=== PATIENT | male | born 1995 | race Caucasian/White ===

== ENCOUNTER 2023-05-10 15:02 | Emergency (ER) | payer MEDICAID ==
[~2023-05-10] VITALS: Ht 180.3 cm; Wt 80.7 kg
[2023-05-10 15:21] VITALS: BP 115/68; TEMP 98.5
[2023-05-10] MEDS ORDERED: predniSONE 50 MG TABLET PO ONE (15:30)
[2023-05-10] MEDS ORDERED: PRED50TA PO (15:34)
[2023-05-10] MEDS ORDERED: predniSONE 20 MG TABLET ONE (15:41)
[2023-05-10 15:48] VITALS: O2SAT 99
== END 2023-05-10 15:48 | disposition home or self-care (01) ==
LOC: ER 15:10
DX: R21 Rash and other nonspecific skin eruption (principal)